=== PATIENT | male | born 1965 | race American Indian/Alaskan Native ===

== ENCOUNTER 2020-08-10 12:40 | Outpatient (CLI) | payer OTHER ==
--- NOTE | 2020-08-10 13:31 | XRay Report ---
LEFT FOOT 3 VIEWS INDICATION / CLINICAL INFORMATION: LEFT FOOT TRAUMA. COMPARISON: None available. FINDINGS: No significant skeletal abnormality Signer Name: Shamir Sevilla MD FACR Signed: 08/10/2020 1:27 PM Workstation Name: [id number]
== END 2020-08-10 12:41 | disposition home or self-care (01) ==
LOC: SPVIMAG 12:40
PROVIDERS: ATTEND Family Medicine
DX: S93.602A Unspecified sprain of left foot, initial encounter (principal); X58.XXXA Exposure to other specified factors, initial encounter; Y93.89 Activity, other specified; Y92.89 Other specified places as the place of occurrence of the external cause; Y99.8 Other external cause status